=== PATIENT | female | born 1960 | race Caucasian/White ===

== ENCOUNTER → 2016-10-23 | Outpatient (CLI) | payer BC ==
[~2016-10-23] MED LIST: CALCIUM1 CAP PO; MOTRIN 600600 MG/TAB PO; MULTI VITAMINS1 TAB PO; PERCOCET 325 MG1 TA2 PO; PLAQUENIL 200M200 MG PO; PRILOSEC 20MG20 MG PO; ZOFRAN 4MG T4 MG/TAB PO; ZYRTEC 10MG10 MG PO
== END ==
LOC: MC.RAD 11:00
DX: Z12.31 Encounter for screening mammogram for malignant neoplasm of breast (principal)

== ENCOUNTER → 2017-12-03 | Outpatient (CLI) | payer BC | LOC: MC.RAD 10-26 11:20 | DX: Z12.31 Encounter for screening mammogram for malignant neoplasm of breast (principal) ==

== ENCOUNTER → 2019-05-01 | Outpatient (CLI) | payer BC | LOC: MC.RAD 13:45 | DX: Z12.31 Encounter for screening mammogram for malignant neoplasm of breast (principal) ==

== ENCOUNTER 2021-08-03 16:00 | Outpatient (RCR) | payer BC | END 2021-08-04 | LOC: WSOT | DX: M32.9 Systemic lupus erythematosus, unspecified (principal); M18.12 Unilateral primary osteoarthritis of first carpometacarpal joint, left hand; M65.331 Trigger finger, right middle finger; G56.01 Carpal tunnel syndrome, right upper limb; G56.03 Carpal tunnel syndrome, bilateral upper limbs; G89.29 Other chronic pain ==

== ENCOUNTER → 2021-08-09 | Outpatient (CLI) | payer BC | LOC: MC.RAD 06-23 15:30 | DX: Z12.31 Encounter for screening mammogram for malignant neoplasm of breast (principal) ==

== ENCOUNTER 2021-08-17 16:00 | Outpatient (RCR) | payer BC | END 2021-09-03 | disposition home or self-care (01) | LOC: WSOT | DX: M32.9 Systemic lupus erythematosus, unspecified (principal); M18.12 Unilateral primary osteoarthritis of first carpometacarpal joint, left hand; M65.331 Trigger finger, right middle finger; G56.01 Carpal tunnel syndrome, right upper limb; G56.03 Carpal tunnel syndrome, bilateral upper limbs; Z98.890 Other specified postprocedural states ==

== ENCOUNTER → 2023-11-15 | Outpatient (CLI) | payer BC | LOC: MC.RAD 07:51 | DX: R92.8 Other abnormal and inconclusive findings on diagnostic imaging of breast (principal) ==